=== PATIENT | female | born 1985 | race Hispanic/Latino ===

== ENCOUNTER 2017-07-15 08:20 | Day surgery (SDC) | payer MEDICAID ==
[2017-07-15] VITALS (8 sets, daily range): BP systolic 110–131; BP diastolic 36–87
[2017-07-15] MEDS ORDERED: SODIUM CHLORIDE 0.9% 1000ML 1,000 ML IV ONE (08:45)
[2017-07-15 09:06] LABS: BASOPHILS % (AUTO) 0.3 % (0.0-5.0); EOSINOPHILS % (AUTO) 3.9 % (0.0-8.0); LYMPHOCYTES % (AUTO) 38.6 % (21.0-51.0); MEAN CORPUSCULAR HEMOGLOBIN 30.6 pg (27.0-33.0); MEAN CORPUSCULAR HGB CONC 34.2 g/dL (32.0-36.0); MEAN CORPUSCULAR VOLUME 89.4 fL (79-99); MONOCYTES % (AUTO) 5.1 % (3.0-13.0); NEUTROPHILS % (AUTO) 52.1 % (40.0-77.0); PLATELET COUNT (AUTO) 139 K/uL (130-400); RED BLOOD CELL COUNT(AUTO) 4.14 MIL/uL (4.00-5.50); RED CELL DISTRIBUTION WIDTH 12.9 % (11.0-15.5); WHITE BLOOD COUNT (AUTO) 6.4 K/uL (4.8-10.8)
[2017-07-15 09:16] LABS: CREATININE 0.6 mg/dL (0.5-1.5); POTASSIUM 3.6 mmol/L (3.5-5.1)
[2017-07-15 09:17] LABS: INR 0.95 (0.85-1.15)
[2017-07-15 09:21] LABS: ALBUMIN 3.6 g/dL (3.5-5.0); BILIRUBIN,DIRECT 0.2 mg/dL (0.0-0.3); BILIRUBIN,TOTAL 0.8 mg/dL (0.2-1.0); TOTAL PROTEIN, SERUM 8.2 g/dL (6.0-8.3)
[2017-07-15 09:32] LABS: % IRON SATURATION 19.5 % (22-44)
[2017-07-15] MEDS ORDERED: MIDAZOLAM HCL 1 MG/ML 2ML VIAL ONE (09:54)
[2017-07-15] MEDS ORDERED: FENTANYL CITRATE PF 50 MCG/1 ML 2ML VIAL ONE (09:54)
[2017-07-15] MEDS ORDERED: ACETAMINOPHEN-CODEINE 300/30MG TAB ONE ×2 (10:39→11:00)
[2017-07-16 07:31] LABS: HEPATITIS A ANTIBODY IGM Negative (Negative); HEPATITIS B CORE IGM Negative (Negative); HEPATITIS Bs ANTIGEN SCREEN P Negative (Negative)
[2017-07-17 15:27] LABS: ALPHA-1-ANTITRYPSIN 138 mg/dL (90-200)
== END 2017-07-15 14:00 | disposition home or self-care (01) ==
LOC: DAH 08:20
PROVIDERS: ATTEND Internal Medicine Gastroenterology
DX: K75.81 Nonalcoholic steatohepatitis (NASH) (principal); E78.4 Other hyperlipidemia; E11.9 Type 2 diabetes mellitus without complications; F32.89 Other specified depressive episodes; Z79.899 Other long term (current) drug therapy
CPT/HCPCS: 36415; 47000; 76942; 80048; 80074; 80076; 82103; 82104; 82390; 82728; 83540; 83550; 84165; 84703; 85025; 85610; 86038; 86255; A4215; C2615; J2250; J3010; J7030

== ENCOUNTER 2019-05-18 10:20 | Emergency (ER) | payer MEDICAID ==
[2019-05-18] MEDS ORDERED: IBUPROFEN 600 MG TABLET ONE (11:05)
== END 2019-05-18 11:26 | disposition home or self-care (01) ==
LOC: EDH 10:20
DX: S80.01XA Contusion of right knee, initial encounter (principal); S70.01XA Contusion of right hip, initial encounter; W18.39XA Other fall on same level, initial encounter; Y93.89 Activity, other specified; Y92.89 Other specified places as the place of occurrence of the external cause; Y99.8 Other external cause status

== ENCOUNTER 2022-01-09 20:13 | Emergency (ER) | payer MEDICAID ==
[~2022-01-09] VITALS: Ht 162.6 cm; Wt 90.7 kg
[2022-01-09 20:15] VITALS: BP 107/68
[2022-01-09 20:57] LABS: BASOPHILS % (AUTO) 0.3 % (0.0-5.0); EOSINOPHILS % (AUTO) 1.5 % (0.0-8.0); HEMATOCRIT 33.5 % (36-48); LYMPHOCYTES % (AUTO) 46.9 % (21.0-51.0); MEAN CORPUSCULAR HEMOGLOBIN 29.5 pg (27.0-33.0); MEAN CORPUSCULAR VOLUME 86.6 fL (79-99); MONOCYTES % (AUTO) 5.4 % (3.0-13.0); NEUTROPHILS % (AUTO) 45.6 % (40.0-77.0); PLATELET COUNT (AUTO) 164 K/uL (130-400); RED BLOOD CELL COUNT(AUTO) 3.87 MIL/uL (4.00-5.50); RED CELL DISTRIBUTION WIDTH 12.4 % (11.0-15.5); WHITE BLOOD COUNT (AUTO) 7.8 K/uL (4.8-10.8)
[2022-01-09 21:05] LABS: CREATININE 0.9 mg/dL (0.5-1.5); POTASSIUM 3.6 mmol/L (3.5-5.1)
[2022-01-09 21:08] LABS: APPEARANCE,URINE CLEAR (CLEAR); BILIRUBIN,URINE NEGATIVE (NEGATIVE); COLOR,URINE YELLOW (YELLOW); GLUCOSE, URINE (UA) NEGATIVE (NEGATIVE); KETONES,URINE NEGATIVE (NEGATIVE); LEUKOCYTE ESTERASE ,URINE NEGATIVE (NEGATIVE); NITRATE,URINE NEGATIVE (NEGATIVE); OCCULT BLOOD,URINE NEGATIVE (NEGATIVE); PROTEIN,URINE NEGATIVE (NEGATIVE); UROBILINOGEN,URINE 0.2 mg/dL (0.2-1.0)
[2022-01-09 21:10] LABS: ALBUMIN 4.1 g/dL (3.5-5.0); TOTAL PROTEIN, SERUM 8.5 g/dL (6.0-8.3)
[2022-01-09 21:12] LABS: HCG,QUALITATIVE URINE NEGATIVE (NEGATIVE)
[2022-01-09 21:14] LABS: AMPHET/METH SCREEN,URINE NEGATIVE (NEGATIVE); BARBITURATE SCREEN, URINE NEGATIVE (NEGATIVE); BENZODIAZEPINES SCREEN,URINE NEGATIVE (NEGATIVE); CANNABINOID SCREEN,URINE NEGATIVE (NEGATIVE); COCAINE SCREEN,URINE NEGATIVE (NEGATIVE); PHENCYCLIDINE SCREEN,URINE NEGATIVE (NEGATIVE)
[2022-01-09] MEDS ORDERED: LORAZEPAM 1 MG TABLET PO ONE (21:30)
== END 2022-01-09 22:03 | disposition home or self-care (01) ==
LOC: EDH 20:13
DX: E11.65 Type 2 diabetes mellitus with hyperglycemia (principal); F41.9 Anxiety disorder, unspecified; E66.9 Obesity, unspecified; Z68.34 Body mass index [BMI] 34.0-34.9, adult; E78.00 Pure hypercholesterolemia, unspecified
CPT/HCPCS: 36415; 80053; 80305; 81003; 81025; 85025

== ENCOUNTER 2024-03-02 21:20 | Emergency (ER) | payer MEDICAID ==
--- NOTE | 2024-03-02 21:37 | ERN ---
ED Note History of Present Illness Stated Complaint: ANXIETY Chief Complaint: Anxiety/Panic Attack Time Seen by MD: 21:24 Time Seen by Midlevel: 21:24 Dictation: Patient is a 38-year-old female history of HTN, DM, anxiety, who presents ED for evaluation of generalized body weakness. Patient reports glucose was 55, she drank a soda then repeat glucose by EMS was 147. Patient is still feeling weak and anxious. Denies chest pain, shortness of breath, headache, dizziness, blurry vision Allergies: Coded Allergies: No Known Allergies (Unverified Allergy, Unknown, 07/15/17) Past Medical History Past Medical History: Anxiety, Bipolar, Diabetes-Type II, High Cholesterol, Hypertension, Schizophrenia Additional Past Medical Hx: Obesity Surgical History: None Family History: Negative Social History: Negative RN Note Reviewed/Agreed w/PFSH: Yes Review of System Dictation Constitutional: Negative for fever,chills, and weight loss Eyes: Negative for injury, pain,redness, and discharge ENT: Negative for injury,pain or swelling Cardiovascular: Negative for chest pain, palpitations, and edema Respiratory: Negative for shortness of breath, cough, and wheezing, Abdomen/GI: Negative for abdominal pain, nausea, vomiting, diarrhea, and constipation Back: Negative for injury and pain : Negative for injury, bleeding and discharge MS/Extremity: Negative for injury and deformity Skin: Negative for rash, and discoloration Neuro: Negative for headache, numbness, tingling, and seizure Psych: Negative for suicide ideation, homicidal ideation, and hallucinations Review of Systems: was completed Initial Vital Sign VS Vital Signs Date Time Temp Pulse Resp B/P (MAP) Pulse Ox O2 Delivery O2 Flow Rate FiO2 03/02/24 21:23 98.1 92 16 125/80 95 Room Air 0 Physical Exam Dictation General: awake, alert, NAD Head/Face: Normocephalic, atraumatic Eyes: PERRL, EOMI, vision at baseline ENT: oral cavity clear, TMs clear, no signs of infection Neck: Trachea midline, supple, no nuchal rigidity Cardiovascular: RRR, normal S1/S2, No MRGs, no JVD Respiratory: CTAB, no respiratory distress, No rales or wheezes Abdomen: Soft, non-tender, non-distended, normal bowel sounds, no guarding or rebound. Skin: Warm, dry, normal turgor, no rash MS/Extremity: Pulses equal, no cyanosis, neurovascular intact, FROM Neuro: COAx4, GCS 15, strength 5/5, CN 2-12 intact, normal cerebellar exam, normal gait, Psych: Normal behavior, mood, and affect normal Results (Laboratory/Radiology) Laboratory/Radiology Laboratory Tests Test 03/02/24 21:51 White Blood Count 10.2 K/uL (4.8-10.8) Red Blood Count 4.16 MIL/uL (4.00-5.50) Hemoglobin 12.0 g/dL (12.0-16.0) Hematocrit 36.1 % (36-48) Mean Corpuscular Volume 86.8 fL (79-99) Mean Corpuscular Hemoglobin 28.8 pg (27.0-33.0) Mean Corpuscular Hemoglobin Concent 33.2 g/dL (32.0-36.0) Red Cell Distribution Width 12.9 % (11.0-15.5) Platelet Count 155 K/uL (130-400) Mean Platelet Volume 12.1 fL (7.5-10.5) H Immature Granulocyte % (Auto) 0.6 % (0-1) Neutrophils (%) (Auto) 60.9 % (40.0-77.0) Lymphocytes (%) (Auto) 31.4 % (21.0-51.0) Monocytes (%) (Auto) 5.9 % (3.0-13.0) Eosinophils (%) (Auto) 1.0 % (0.0-8.0) Basophils (%) (Auto) 0.2 % (0.0-5.0) Neutrophils # (Auto) 6.2 K/uL (1.8-7.7) Lymphocytes # (Auto) 3.2 K/uL (1.0-4.8) Monocytes # (Auto) 0.6 K/uL (0.1-1.0) Eosinophils # (Auto) 0.10 K/uL (0.00-0.70) Basophils # (Auto) 0.02 K/uL (0.00-0.20) Absolute Immature Granulocyte (auto 0.06 K/uL (0-1) Nucleated Red Blood Cells 0.0 % (0.0-0.19) Sodium Level 137 mmol/L (136-145) Potassium Level 3.0 mmol/L (3.5-5.1) *L Chloride Level 100 mmol/L (101-111) L Carbon Dioxide Level 26 mmol/L (21-32) Blood Urea Nitrogen 11 mg/dL (7-18) Creatinine 0.7 mg/dL (0.5-1.0) Glomerular Filtration Rate Calc 112 mL/min (>90) Random Glucose 145 mg/dL (70-105) H Total Calcium 9.0 mg/dL (8.5-10.1) EKG Comment: Date: 03/02/2024 Time: 2137 Ventricular rate: 93 ND interval: 156 QRS duration: 103 QT/QTc: 445 EKG interpretation: Normal sinus rhythm, prolonged QT interval, no STEMI. Reviewed by ED Attending ED Course ED Course Orders Procedure Category Date Status Time Cbc With Differential LAB 03/02/24 Complete 21:33 Basic Metabolic Panel LAB 03/02/24 Complete 21:33 12 Lead Ekg Tracing- EKG 03/02/24 Logged Technical 21:33 Potassium Chl 10% PHA 03/02/24 Complete Elixir 20meq (Kcl 10% 22:30 Potassium Chl 10% PHA 03/02/24 Complete Elixir 20meq (Kcl 10% 22:30 Clonazepam 1mg Tab PHA 03/02/24 Complete (Klonopin 1mg Tab) 23:00 Current Medications Medications (Trade) Dose Ordered Sig/Josiah Route PRN Reason Start Time Stop Time Status Last Admin Dose Admin Clonazepam (KLONopin 1MG TAB) 1 mg ONCE ONCE PO 03/02/24 23:00 03/02/24 23:01 DC 03/02/24 22:53 Potassium Chloride (KCl 10% Elixir 20meq/15ml) 20 meq ONCE ONCE PO 03/02/24 22:30 03/02/24 22:19 DC Potassium Chloride (KCl 10% Elixir 20meq/15ml) 40 meq ONCE ONCE PO 03/02/24 22:30 03/02/24 22:31 DC 03/02/24 22:22 Vital Signs Date Time Temp Pulse Resp B/P (MAP) Pulse Ox O2 Delivery O2 Flow Rate FiO2 03/02/24 21:23 98.1 92 16 125/80 95 Room Air 0 Medical Decision Making MDM Patient has a improvement of anxiety. Patient was ready to be discharged. Patient has had replacement of her potassium DX & DISP Disposition: Discharge Departure Impression: Primary Impression: Anxiety Condition: Stable Additional Instructions: Follow up with the primary care physician in the next 1-7 days for continuance of care. Please continuegies Referrals: WILLY ALBRECHT MD (PCP) TERA SANCHEZ Mar 02, 2024 21:37 CASSANDRA PURI MD Mar 02, 2024 23:18
[2024-03-02 21:57] LABS: BASOPHILS # (AUTO) 0.02 K/uL (0.00-0.20); BASOPHILS % (AUTO) 0.2 % (0.0-5.0); HEMATOCRIT 36.1 % (36-48); IMMATURE GRANULOCYTE ABSOLUTE 0.06 K/uL (0-1); LYMPHOCYTES # (AUTO) 3.2 K/uL (1.0-4.8); LYMPHOCYTES % (AUTO) 31.4 % (21.0-51.0); MEAN CORPUSCULAR HEMOGLOBIN 28.8 pg (27.0-33.0); MEAN CORPUSCULAR HGB CONC 33.2 g/dL (32.0-36.0); MEAN CORPUSCULAR VOLUME 86.8 fL (79-99); MONOCYTES # (AUTO) 0.6 K/uL (0.1-1.0); MONOCYTES % (AUTO) 5.9 % (3.0-13.0); NEUTROPHILS # (AUTO) 6.2 K/uL (1.8-7.7); NEUTROPHILS % (AUTO) 60.9 % (40.0-77.0); PLATELET COUNT (AUTO) 155 K/uL (130-400); RED BLOOD CELL COUNT(AUTO) 4.16 MIL/uL (4.00-5.50); RED CELL DISTRIBUTION WIDTH 12.9 % (11.0-15.5); WHITE BLOOD COUNT (AUTO) 10.2 K/uL (4.8-10.8)
[2024-03-02 22:07] LABS: CREATININE 0.7 mg/dL (0.5-1.0)
[2024-03-02] MEDS: PoTASSium chl 10% ELIXIR 20MEQ 20 MEQ/15 ML UDCUP PO ONE (22:22)
[2024-03-02] MEDS ORDERED: PoTASSium chl 10% ELIXIR 20MEQ 20 MEQ/15 ML UDCUP PO ONE (22:30)
[2024-03-02] MEDS: clonazePAM 1MG TAB PO ONE (22:53)
[2024-03-02 23:27] VITALS: BP 123/78; PULSE 89; RESP 18; TEMP 98.3; O2SAT 99
--- NOTE | 2024-03-03 06:56 | EKG ---
[facility] Test Date: 2024-03-02 Test Time: 21:38:46 Pat Name: TAMMIE ISSA Department: ED Room: Gender: F [employer]: [id number] : 1985 Requested By: TERA SANCHEZ Order Number: [id number] Reading MD: Castro Bustos Measurements Intervals [place] Rate: 93 P: 38 DE: 156 QRS: 28 QRSD: 103 T: 12 QT: 445 QTc: 555 Interpretive Statements Sinus rhythm Prolonged QT interval No previous ECG available for comparison Electronically Signed On 03-03-2024 16:12:49 CDT by Castro Bustos Please click the below link to view image of tracing.
== END 2024-03-02 23:27 | disposition home or self-care (01) ==
LOC: EDH 21:20
DX: F41.9 Anxiety disorder, unspecified (principal); I10 Essential (primary) hypertension; E11.9 Type 2 diabetes mellitus without complications; E66.9 Obesity, unspecified; E78.00 Pure hypercholesterolemia, unspecified; F20.9 Schizophrenia, unspecified; F31.9 Bipolar disorder, unspecified
CPT/HCPCS: 36415; 80048; 85025; 93005